=== PATIENT | female | born 2005 | race Caucasian/White ===

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

== ENCOUNTER → 2024-01-31 13:50 | Outpatient (BNVA) | payer MEDICAID, SELFPAY | PROVIDERS: PCP Family Medicine; Visit Provider Nurse Practitioner | DX: R39.9 Unspecified symptoms and signs involving the genitourinary system (principal) | CPT/HCPCS: 81000; 87086; 87491; 87591 ==

== ENCOUNTER → 2024-02-24 11:18 | Outpatient (BNVA) | payer MEDICAID, SELFPAY | PROVIDERS: PCP Family Medicine; Visit Provider Registered Nurse Neonatal Intensive Care | DX: J02.9 Acute pharyngitis, unspecified (principal) | CPT/HCPCS: 87880 ==

== ENCOUNTER → 2024-08-07 11:30 | Outpatient (BNVA) | payer MEDICAID, SELFPAY | PROVIDERS: PCP Family Medicine; Visit Provider Nurse Practitioner | DX: J02.9 Acute pharyngitis, unspecified (principal) | CPT/HCPCS: 87880 ==

== ENCOUNTER → 2024-09-11 16:18 | Outpatient (BNVA) | payer MEDICAID, SELFPAY | PROVIDERS: PCP Family Medicine; Visit Provider Nurse Practitioner | DX: J02.9 Acute pharyngitis, unspecified (principal) | CPT/HCPCS: 87071; 87880 ==

== ENCOUNTER → 2025-02-14 14:15 | Outpatient (BNVA) | payer BC, MEDICAID, SELFPAY | PROVIDERS: PCP Family Medicine; Visit Provider Nurse Practitioner | DX: Z20.2 Contact with and (suspected) exposure to infections with a predominantly sexual mode of transmission (principal) | CPT/HCPCS: 87491; 87591; 87661 ==

== ENCOUNTER → 2025-03-04 12:01 | Outpatient (BNVA) | payer BC, MEDICAID, SELFPAY | PROVIDERS: PCP Family Medicine; Visit Provider Emergency Medicine | DX: J02.9 Acute pharyngitis, unspecified (principal) | CPT/HCPCS: 87071; 87880 ==

== ENCOUNTER 2025-05-31 03:44 | Emergency (ER) | payer BC, MEDICAID, SELFPAY ==
--- OUTSIDE RECORDS SUMMARY | 2025-05-31 03:53 | XMS_ITS | Clinical Summary ---
Author Organization [facility] Address [address] [place]: Epic Prelude ADT LISANDRA MORRIS [address] Care Team Providers Care Merchandise Pickup/Receiving Associate Name Role Phone Unavailable Primary Care Provider Unavailabl e Allergies Active Allergy Reactions Criticality Noted Date Comments Ciprofloxacin Nausea and Vomiting Low 03/11/2025 Medications predniSONE (DELTASONE) 10 mg tablet Take 10 mg by mouth 2 times daily. Active VyLibra 0.25-0.035 mg tablet Take 1 Tablet by mouth daily. Active busPIRone (BUSPAR) 10 mg tablet Take 10 mg by mouth 2 times daily. Active QUEtiapine (SEROquel) 25 mg tablet Take 50 mg by mouth daily. Active azelastine (ASTELIN) 137 mcg/actuation nasal spray Administer 2 Sprays in each nostril 2 times daily. 30 mL 6 Active fluticasone propionate (FLONASE) 50 mcg/spray [place], Suspension nasal inhaler Administer 2 Sprays in each nostril daily. 16 Gram 3 Active Active Problems Problem Noted Date Diagnosed Date Von Willebrand disease 05/01/2021 Intentional drug overdose 05/01/2021 Moderate episode of recurrent major depressive d isorder 05/01/2021 Epistaxis 03/04/2016 Allergic rhinitis 03/04/2016 Encounters Date Type Department Care Team Description 05/20/2025 External Device Data [facility] ABSTRACTION Provider, Abstract 04/30/2025 External Device Data [facility] ABSTRACTION Provider, Abstract 04/29/2025 External Device Data [facility] ABSTRACTION Provider, Abstract 04/01/2025 External Device Data [facility] ABSTRACTION Provider, Abstract 03/18/2025 External Device Data [facility] ABSTRACTION Provider, Abstract 03/18/2025 External Device Data [facility] ABSTRACTION Provider, Abstract 03/18/2025 External Device Data ST[facility] ABSTRACTION Provider, Abstract 03/11/2025 1:15 PM CDT Office Visit [facility] [address] [place] [id number] Catarino Monroy DO Allergic rhinitis, unspecified seasonality, unspecified trigger (Primary Dx); Nasal congestion; Recurrent tonsillitis 03/11/2025 12:30 PM CDT Procedure visit [facility] [address] [place] [id number] Ekaterina Lugo AU.D ETD (Eustachian tube dysfunction), bilateral (Primary Dx) from Last 3 Months Family History Medical History Relation Name Comments epilepsy Brother 1 Healthy Brother 2 Healthy Father Healthy Mother Healthy Sister Relation Name Status Comments Brother 1 Alive Brother 2 Alive Father Alive Mother Alive Sister Alive Social History Tobacco Use Types Packs/Day Years Used Date Smoking Tobacco: Never Smokeless Tobacco: Never Tobacco Cessation:Counseling Given: Yes Alcohol Use Standard Drinks/Week Comments Yes 5 (1 standard drink = 0.6 oz pur e alcohol) Comments Unknown Sex and Gender Information Value Date Recorded Sex Assigned at Not on file 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 Gender Identity Not on file Sexual Orientation Not on file Last Filed Vital Signs Vital Sign Reading Time Taken Comments Blood Pressure 118/64 03/11/2025 1:38 PM CDT Pulse 79 05/01/2021 7:04 PM CDT Temperature 36.9 C (98.4 F) 05/01/2021 7:04 PM CDT Respiratory Rate 16 05/01/2021 7:04 PM CDT Oxygen Saturation 98% 05/01/2021 7:04 PM CDT Inhaled Oxygen Concentration - - Weight 53 kg (116 lb 12.8 oz) 03/11/2025 1:38 PM CDT Height 165.1 cm (5' 5 ) 03/11/2025 1:38 PM CDT Body Mass Index 19.44 03/11/2025 1:38 PM CDT Plan of Treatment Health Maintenance Due Date Last Done Comments CHLAMYDIA SCREENING (ANNUAL) 11-24 YEARS 01/23/2015 HPV VACCINES (1 - 3-dose series) 01/23/2019 DTAP/TDAP/TD VACCINES (1 - Tdap) 01/23/2023 HEPATITIS B VACCINES (1 of 3 - 19+ 3-dose series) 01/23/2023 COVID-19 Vaccine (3 - 2023- season) 2024, 05/14/2021 CERVICAL CANCER SCREENING 01/23/2025 HPV/Cotest (21-29) 01/23/2025 PAP SMEAR 01/23/2025 INFLUENZA VACCINE (#1) 2025 Procedures Procedure Name Priority Date/Time Associated Diagnosis Comments MN TYMPANOMETRY Routine 03/11/2025 12:46 PM CDT ETD (Eustachian tube dysfunction), bilateral MN SPEECH AUDIOMETRY THRESHOLD SPEECH RECOGNIJ Routine 03/11/2025 12:45 PM CDT ETD (Eustachian tube dysfunction), bilateral MN PURE TONE AUDIOMETRY AIR ONLY Routine 03/11/2025 12:45 PM CDT ETD (Eustachian tube dysfunction), bilateral from Last 3 Months Results * MN TYMPANOMETRY (03/11/2025 12:46 PM CDT) Ekaterina Burger AU.D - 03/11/2025 12:46 PM CDT Ekaterina Lugo AU.D 03/11/2025 12:54 PM Tympanometric results: See Scanned Images Right Ear: Jerger Type A (1.2 ear canal volume; 0.63 compliance; 4 middle ear pressure) Left Ear: Jerger Type Ad (0.8 ear canal volume; 1.67 compliance; 6 middle ear pressure) us Ekaterina [facility] ORDERABLE S Final Result * MN PURE TONE AUDIOMETRY AIR ONLY, MN SPEECH AUDIOMETRY THRESHOLD SPEECH RECOGNIJ (03/11/2025 12:45 PM CDT) Ekaterina Burger AU.D - 03/11/2025 12:45 PM CDT Ekaterina Lugo AU.D 03/11/2025 12:54 PM SUBJECTIVE: Alexandria Vernon is a 20 y.o. female seen today due to ear pain and tonsil issues. Alexandria reported tonsil infections and stones. Ear pain due to persistent fluid was reported. Bilateral tinnitus that has been present for a while was also reported. Alexandria feels the left tonsil and ear are worse than the right. OBJECTIVE: Patient was referred by Dr. Zhu and was seen prior to medical evaluation with ENT provider. 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 Tympanometric results: See Scanned Images Right Ear: Jerger Type A (1.2 ear canal volume; 0.63 compliance; 4 middle ear pressure) Left Ear: Jerger Type Ad (0.8 ear canal volume; 1.67 compliance; 6 middle ear pressure) Patient test reliability was good. (Starkey #2; Transducer: HEADPHONES; Word List:[id number]) PLAN: It was recommended that the patient follow-up with the ENT provider as planned for further medical evaluation. Ekaterina [facility] ORDERABLE S Final Result from Last [address] [place] [address] [place] [address] [employer] MEDICAID Advance Directives For more information, please contact: [phone] * Full Code (Latest Code Status on File) Date Activated Date Inactivated Comments 05/01/2021 3:57 AM 05/02/2021 2:53 AM
--- OUTSIDE RECORDS SUMMARY | 2025-05-31 03:53 | XMS_ITS | Clinical Summary ---
Author Organization [facility] Address [address] [place] [address] Care Team Providers Care Eyelet Riveter Name Role Phone Unavailable Primary Care Provider Unavailabl e Allergies No known active allergies Medications No known medications Active Problems Problem Noted Date Diagnosed Date Epistaxis 03/04/2016 Allergic rhinitis 03/04/2016 Family History Medical History Relation Name Comments Healthy Father Healthy Mother Relation Name Status Comments Father Alive Mother Alive Social History Tobacco Use Types Packs/Day Years Used Date Smoking Tobacco: Never Smokeless Tobacco: Never Alcohol Use Standard Drinks/Week Comments No 0 (1 standard drink = 0.6 oz pur e alcohol) Comments Unknown Sex and Gender Information Value Date Recorded Sex Assigned at Not on file Legal Sex Female 11:31 AM CDT Gender Identity Not on file Sexual Orientation Not on file Last Filed Vital Signs Vital Sign Reading Time Taken Comments Blood Pressure 111/75 03/04/2016 10:52 AM CDT Pulse 96 03/04/2016 10:52 AM CDT Temperature - - Respiratory Rate - - Oxygen Saturation - - Inhaled Oxygen Concentration - - Weight 37.6 kg (83 lb) 03/04/2016 10:52 AM CDT Height 152.4 cm (5') 03/04/2016 10:52 AM CDT Body Mass Index 16.21 03/04/2016 10:52 AM CDT Plan of Treatment Health Maintenance Due Date Last Done Comments CHLAMYDIA SCREENING (ANNUAL) 11-24 YEARS 01/23/2015 HPV VACCINES (1 - 3-dose series) 01/23/2019 DTAP/TDAP/TD VACCINES (1 - Tdap) 01/23/2023 HEPATITIS B VACCINES (1 of 3 - 19+ 3-dose series) 01/14 CERVICAL CANCER SCREENING 01/23/2025 HPV/Cotest (21-29) 01/23/2025 PAP SMEAR 01/23/2025 INFLUENZA VACCINE (#1) 2025 Insurance
[2025-05-31 04:04] VITALS: BP 113/78; PULSE 78; RESP 20; TEMP 36.6; O2SAT 95; BMI 15.4
--- NOTE | 2025-05-31 04:55 | W.ED.PSYCHS ---
HPI - Psych General: Chief Complaint: Psychiatric Symptoms Stated Complaint: si Time Seen by Provider: 05/31/25 04:41 History of Present Illness: This 20-year-old patient presents to the emergency department for psychiatric evaluation following what appears to be a family conflict situation. The patient reports having psychological issues but describes them as 'nothing too bad.' When questioned about current medical problems, the patient denies any acute medical concerns. The patient has a history of psychiatric hospitalization at age 16, approximately 4 years ago, but has not required inpatient psychiatric care since that time. The patient denies current suicidal ideation and homicidal ideation when directly questioned. The patient reports having a safe place to go upon discharge and acknowledges that some distance from family members involved in recent discussions would be beneficial to allow tensions to cool down. The patient denies fever, vomiting, and . The current presentation appears to be related to family dynamics rather than acute psychiatric decompensation. Related Data Home Medications ?Medication ?Instructions ?Recorded ?Confirmed buspirone 10 mg tablet 10 mg PO TID PRN 10/12/23 03/04/25 lamotrigine 25 mg tablet (Lamictal) 50 mg PO DAILY 01/25/24 03/04/25 methylphenidate HCl 18 mg 18 mg PO DAILY 05/22/24 03/04/25 tablet,extended release 24 hr (Concerta) Previous Rx's ?Medication ?Instructions ?Recorded quetiapine 25 mg tablet (Seroquel) 25 mg PO .qhs #30 tabs 09/18/23 norgestimate 0.25 mg-ethinyl 1 tab PO DAILY #84 tabs 09/23/24 estradiol 0.035 mg tablet (Sprintec (28)) fluticasone propionate 50 2 spray intranasal DAILY #16 grams 10/24/24 mcg/actuation nasal spray,suspension (Flonase Allergy Relief) amoxicillin 500 mg tablet 500 mg PO BID 10 days #20 tabs 03/04/25 prednisone 10 mg tablet 30 mg (3 x 10 mg) PO DAILY 5 days 03/04/25 #15 tabs Allergies Allergy/AdvReac Type Severity Reaction Status Date / Time ciprofloxacin Allergy ADR-Halluci Verified 03/04/25 11:51 clement COUNTS INCLUDE 234 BEDS AT THE [facility] ED COUNTS INCLUDE 234 BEDS AT THE [facility]: Medical History IBS (irritable bowel syndrome) Postural orthostatic tachycardia syndrome [POTS] Chronic constipation Recurrent UTI Urolithiasis STI (sexually transmitted infection) Major depressive disorder Generalized anxiety disorder Anxiety Family History Mother Arthritis Grandmother Cancer Maternal-breast Other Bleeding disorder Clotting disorder Diabetes Hyperlipidemia Hypertension Lung disease Psychiatric illness Denies family history of CAD (coronary artery disease) Dementia Chronic kidney disease (CKD) Anesthesia complication Stroke Social History Smoking and tobacco/nicotine status: never used tobacco/nicotine Second hand smoke exposure: No Alcohol intake: current Alcohol intake frequency: few times a month Substance/Drug Use: never Adopted: No Lives independently: Yes Marital status: Single Highest education level completed: High School Graduate Current occupational status: employed Current occupation: Self employed Special ina needs: No Agree to transfusion: Yes Physical Exam Const: COMMON NORMALS: no acute distress GENERAL APPEARANCE: cooperative; not ill appearing and not frail appearing HENMT: COMMON NORMALS: normocephalic, atraumatic and Normal external nose present HEAD & SCALP: normocephalic and atraumatic FACE & SINUS: normal facial exam and face symmetric NOSE: Normal external nose present Eye: COMMON NORMALS: Equal, round and reactive pupils present and EOMs intact bilaterally PUPIL: Yes Equal, round and reactive pupils present Neck/C-Spine: GENERAL: Yes trachea midline Chest: CHEST: Yes Symmetrical chest wall rise Resp: COMMON NORMALS: normal respiratory effort, No retractions, No use of accessory muscles and clear to auscultation bilaterally AUSCULTATION: clear to auscultation bilaterally Cardio: COMMON NORMALS: regular rate and regular rhythm RATE: regular rate RHYTHM: regular rhythm GI: COMMON NORMALS: Normal to inspection, nondistended, normoactive bowel sounds present Extremity: COMMON NORMALS: no pedal edema Neuro: PRETTY COMA SCALE: document GCS findings Pretty coma scale eye opening: Spontaneous Pretty coma scale verbal response: Orientated [place] coma scale motor response: Obey commands Pretty coma scale total score: 15 SENSORY EXAM: Yes extremities (intact) Psych: COMMON NORMALS: speech normal SPEECH: Yes normal speech Skin: COMMON NORMALS: no rashes or lesions noted GENERAL SKIN EXAM: no rashes or lesions noted Course Vital Signs: Vital signs: Vital Signs Temperature 98 F 05/31/25 04:04 Pulse Rate 78 05/31/25 04:04 Respiratory Rate 20 H 05/31/25 04:04 Blood Pressure 113/78 05/31/25 04:04 Pulse Oximetry 95 05/31/25 04:04 Oxygen Delivery Me thod Room Air 05/31/25 04:04 MDM - Psych Medical Decision Making This patient is awake, alert, does not appear intoxicated and all clinically. She denies suicidality or homicidality. She has a safe place to go she states if she leaves here at discharge. I see no reason to admit this patient for emergent psychiatric evaluation and treatment given her clinical status at this time. Medically she is quite stable as well. She will be allowed discharge to follow-up as an outpatient, and return for any new or worsening symptoms. No radiology studies performed this visit Discharge Plan Discharge Patient Disposition: Home Clinical Impression: Anxiety and depression Condition: Stable Prescriptions: No Action buspirone 10 mg tablet 10 mg PO TID PRN lamotrigine [Lamictal] 25 mg tablet 50 mg PO DAILY fluticasone propionate [Flonase Allergy Relief] 50 mcg/actuation spray,suspension 2 spray intranasal DAILY Qty: 16 0RF Rx Instructions: administer into each nostril methylphenidate HCl [Concerta] 18 mg tablet extended release 24hr 18 mg PO DAILY prednisone 10 mg tablet 30 mg PO DAILY 5 Days Qty: 15 0RF amoxicillin 500 mg tablet 500 mg PO BID 10 Days Qty: 20 0RF quetiapine [Seroquel] 25 mg tablet 25 mg PO .qhs Qty: 30 0RF norgestimate-ethinyl estradiol [Sprintec (28)] 0.25-35 mg-mcg tablet 1 tab PO DAILY Qty: 84 2RF Discharge Orders: Discharge ED (Routine); Ordered 05/31/25 Ordered By: Andreas Gutierrez Referrals: Bertin Zhu MD [Primary Care Provider, Family Practice] - 4-7 days Patient Instructions: Anxiety (ED), Opioid Safety, Pain Management, Patient Portal & Jessica Instructions Activity Restrictions/Additional Instructions: Return immediately to the emergency department for any thoughts or wishes to harm your self or anyone else. Call your doctor Monday for follow-up appointment. Print Language: Togolese Coding Level of Care Code ED Sterilizer Operator for Dee Dee Easley
--- NOTE | 2025-05-31 06:41 | PC.NURSE ---
pt awoken from sleep and able to call mother who on way to pick patient up.
== END 2025-05-31 07:05 | disposition home or self-care (01) ==
PROVIDERS: Emergency Provider Emergency Medicine; PCP Family Medicine
DX: F41.9 Anxiety disorder, unspecified (principal); F32.A Depression, unspecified
CPT/HCPCS: 99283

== ENCOUNTER → 2025-08-10 16:15 | Outpatient (BNVA) | payer BC, MEDICAID, SELFPAY | PROVIDERS: PCP Family Medicine; Visit Provider Emergency Medicine | DX: J02.9 Acute pharyngitis, unspecified (principal) | CPT/HCPCS: 87071; 87880 ==